=== PATIENT | female | born 1965 | race Two or more races ===

== ENCOUNTER 2018-02-14 10:52 | Emergency (ER) | payer OTHER ==
[~2018-02-14] VITALS: Ht 172.7 cm; Wt 131.5 kg
[~2018-02-14 10:52] MED LIST: CELEBREX100 MG PO
== END 2018-02-14 13:03 | disposition home or self-care (01) ==
LOC: ER 10:52
DX: L08.89 Other specified local infections of the skin and subcutaneous tissue (principal); S80.862S Insect bite (nonvenomous), left lower leg, sequela; S80.861S Insect bite (nonvenomous), right lower leg, sequela; W57.XXXS Bitten or stung by nonvenomous insect and other nonvenomous arthropods, sequela

== ENCOUNTER 2018-02-21 19:51 | Emergency (ER) | payer OTHER ==
[~2018-02-21] VITALS: Ht 172.7 cm; Wt 131.5 kg
== END 2018-02-21 22:30 | disposition home or self-care (01) ==
LOC: ER 19:51
DX: L03.116 Cellulitis of left lower limb (principal); L03.115 Cellulitis of right lower limb; S80.862S Insect bite (nonvenomous), left lower leg, sequela; S80.861S Insect bite (nonvenomous), right lower leg, sequela; W57.XXXS Bitten or stung by nonvenomous insect and other nonvenomous arthropods, sequela

== ENCOUNTER 2024-02-11 22:23 | Inpatient (IN) | payer OTHER ==
[~2024-02-11] VITALS: Ht 167.6 cm; Wt 136.1 kg
--- NOTE | 2024-02-11 22:37 | NUR ---
PACIENTE ALERTA Y ORIENTADA X 3. REFIERE INFLAMACION CON ENROJESIMIENTO EN AMBAS MEÑO QUE COMENZO HACEN 3 SEMANAS. ESTA REFIERE NO PUEDE CERRAR LAS MEÑO POR EL DOLOR Y LA INFLAMACION.
[2024-02-11] MEDS ORDERED: DEXAMETHASONE SODIUM PHOSPHATE 4 MG/ML VIAL IM STA (22:49)
[2024-02-11] MEDS ORDERED: CLINDAMYCIN PHOSPHATE 150 MG/ML (600mg) IM STA (22:49)
[2024-02-11] MEDS ORDERED: CLINDAMYCIN PHOSPHATE 150 MG/ML (300mg) ONE (23:00)
[2024-02-11] MEDS ORDERED: DEXAMETHASONE SODIUM PHOSPHATE 4 MG/ML VIAL ONE (23:01)
--- NOTE | 2024-02-11 23:59 | NUR ---
PACIENTE ALERTA Y ORIENTADA X3. SE ORIENTA SOBRE TX MEDICO Y REFIERE ENTENDER. SIN EMBARGO, PACIETNE REFIERE NO DESEAR TRATAMIENTO Y ESPERAR POR OPINION DE OTRO MEDICO YA QUE ENTIENDE QUE DEBE QUEDARSE EN OBSERVACION Y QUE SE LE DEBE REALIZAR MUESTRAS DE LABORATORIO.
[2024-02-12] MEDS ORDERED: METHYLPREDNISOLONE SOD SUCC 125 MG VIAL IV STA (00:56)
[2024-02-12] MEDS ORDERED: DIPHENHYDRAMINE HCL 50 MG/ML VIAL 1ML IV STA (00:57)
[2024-02-12] MEDS ORDERED: DIPHENHYDRAMINE HCL 50 MG/ML VIAL 1ML ONE (01:01)
[2024-02-12] MEDS ORDERED: METHYLPREDNISOLONE SOD SUCC 125 MG VIAL ONE (01:02)
--- NOTE | 2024-02-12 01:30 | NUR ---
SE ORIENTA A PACIENTE SOBRE NUEVO TRATAMIENTO RECOMENDADO POR MEDICO Y REFIERE ENTENDER Y ESTAR DE ACUERDO CON EL MISMO. SE REALIZAN MUESTRAS DE LAB BAJO MEDIDAS ASEPTICAS. SE ABRE ACCESO VENOSO EN BRAZO ARIANNA CON ANGIO #[id number], BAJO MEDIDAS ASEPTICAS. SE ADMINISTRA MEDICAMENTOS NELIDA ORDEN MEDICA.
[2024-02-12 02:09] LABS: HEMATOCRIT 40.4 % (36.0-45.00); HEMOGLOBIN 13.3 g/dL (12.0-15.00); MEAN CELL VOLUME 82.6 fL (80.00-100.00); MEAN CORPUSCULAR HEMOGLOBIN 27.3 pg (27.00-32.0); MEAN CORPUSCULAR HGB CONC 33.1 g/dl (32.0-36.0); PLATELET COUNT 286 K/uL (150-450); RED BLOOD COUNT 4.89 M/uL (4.00-6.00)
[2024-02-12 02:19] LABS: CALCIUM 9.6 mg/dL (8.5-10.1); CREATININE SERUM 0.75 mg/dL (0.55-1.02); GFR 79.37; POTASSIUM 3.56 mEq/L (3.5-5.1)
[2024-02-12] MEDS ORDERED: CEFTRIAXONE SODIUM 1,000 MG VIAL IV STA (04:38)
[2024-02-12] MEDS ORDERED: CEFTRIAXONE SODIUM 1,000 MG VIAL ONE (04:40)
[2024-02-12] MEDS ORDERED: SODIUM CHLORIDE 0.45 % 500 ML IV ONE (06:30)
--- NOTE | 2024-02-12 07:10 | NUR ---
SE RECIBE PTE ALERTA ORIENTADA X3 EN DEEPAK CON BARANDAS ELEVADAS POR CURIEL SEGURIDAD.VENOPUNCION PATENTE BEREKET DE EDEMA Y ERITEMA RECIBIENDO 0.45NSS BAJANDO A 75ML/HR.PENDIENTE CONSULTA MEDICA CON DX HAND CELLULITIS.
[2024-02-12] MEDS ORDERED: KETOROLAC TROMETHAMINE 30 MG VIAL IV PRN (07:45)
[2024-02-12] MEDS ORDERED: VANCOMYCIN HCL 1,000 MG VIAL ONE (07:57)
[2024-02-12] MEDS ORDERED: ENOXAPARIN SODIUM 40 MG/0.4 ML SYRINGE SUBCUTANEO ONE (07:58)
[2024-02-12] MEDS ORDERED: VANCOMYCIN HCL 1,000 MG VIAL IV SCH (09:00)
[2024-02-12] MEDS ORDERED: ENOXAPARIN SODIUM 40 MG/0.4 ML SYRINGE SUBCUTANEO SCH (09:00)
[2024-02-13] MEDS ORDERED: CEFTRIAXONE SODIUM 2,000 MG in 0.9 % SODIUM CHLORIDE 100 ML IV SCH (12:00)
[2024-02-14] MEDS ORDERED: EMOLLIENTS 6 OZ BOTTLE TOP SCH ×2 (14:23→17:00)
[2024-02-14] MEDS ORDERED: LINEZOLID 600 MG TABLET PO SCH (21:00)
[2024-02-16] MEDS ORDERED: PHENOL 177 ML BOTTLE MM PRN (08:15)
[2024-02-16 14:57] LABS: HEMATOCRIT 37.6 % (36.0-45.00); HEMOGLOBIN 12.3 g/dL (12.0-15.00); MEAN CELL VOLUME 83.2 fL (80.00-100.00); MEAN CORPUSCULAR HEMOGLOBIN 27.3 pg (27.00-32.0); MEAN CORPUSCULAR HGB CONC 32.8 g/dl (32.0-36.0); PLATELET COUNT 281 K/uL (150-450); RED BLOOD COUNT 4.52 M/uL (4.00-6.00); RED CELL DISTRIBUTION WIDTH 14.1 % (11.5-14.5)
[2024-02-17 15:11] LABS: ALBUMIN 3.4 gm/dL (3.4-5.0); BILIRUBIN TOTAL 0.61 mg/dL (0.3-1.2); CALCIUM 9.7 mg/dL (8.5-10.1); CREATININE SERUM 0.88 mg/dL (0.55-1.02); GLOBULINA 4.6 G/DL (2.4-3.5); POTASSIUM 5.72 mEq/L (3.5-5.1)
[2024-02-18 08:13] LABS: HEMATOCRIT 35.1 % (36.0-45.00); HEMOGLOBIN 11.6 g/dL (12.0-15.00); MEAN CELL VOLUME 81.7 fL (80.00-100.00); MEAN CORPUSCULAR HEMOGLOBIN 26.9 pg (27.00-32.0); PLATELET COUNT 262 K/uL (150-450); RED CELL DISTRIBUTION WIDTH 13.9 % (11.5-14.5)
== END 2024-02-18 17:57 | disposition home or self-care (01) | DRG 607 ==
LOC: ER 22:24 → SEC-K 02-12 07:43 → MEDJ 02-12 07:43 → MEDI 02-12 07:43 → MEDJ 02-14 15:06
PROVIDERS: General Practice; Internal Medicine Infectious Disease; ADMIT Internal Medicine; ATTEND Internal Medicine
DX: L25.9 Unspecified contact dermatitis, unspecified cause (principal); L03.114 Cellulitis of left upper limb; L03.113 Cellulitis of right upper limb